=== PATIENT | female | born 1995 | race Caucasian/White ===

== ENCOUNTER 2018-04-06 16:41 | Inpatient (IN) ==
[2018-04-06] MEDS: Lactated Ringers-OB Dept 1,000 ML PRIMARY IV SCH (23:15)
[2018-04-06] MEDS ORDERED: Lactated Ringers 500 ML PRIMARY IV ONE (23:50)
[2018-04-07] MEDS ORDERED: Aluminum Chloride Soln 37.5 ml Solution TOPICAL ONE (09:22)
--- NOTE | 2018-04-07 09:28 | DI ---
LIMITED OBSTETRICAL ULTRASOUND FOR BIOPHYSICAL PROFILE, 04/07/2018 7:34 AM Clinical History: decelerations. Previous Exam: 12/02/2017. EDC Based on Early OB US: 07/13/2017. HENRY: 8.6 cm. Heart Rate: 142 beats per minute. Respiration Score: 0 Fine Motor Score: 2 Gross Motor Score: 2 Amnionic Fluid Score: 2 Reading: Biophysical Profile Score: 10/04.
[2018-04-07] MEDS: Lactated Ringers-OB Dept 1,000 ML PRIMARY IV SCH ×2 (10:08→23:26)
[2018-04-07] MEDS ORDERED: NALOXONE 0.4 MG/1 ML VIAL IVP PRN (18:12)
[2018-04-07] MEDS ORDERED: LIDOCAINE HCL 2 % 10 ML JELLY URO-JECT TOPICAL PRN (18:12)
[2018-04-07] MEDS ORDERED: Phenylephrine Inj 50 MCG in Sodium Chloride 0.9% vial 0.5 ML IVP PRN (18:12)
[2018-04-07] MEDS ORDERED: CefOXitin Inj 2 GM in Sodium Chloride 0.9% 100 ML IV PRN (18:12)
[2018-04-07] MEDS ORDERED: MISOPROSTOL 200 MCG TABLET RECTAL PRN (18:12)
[2018-04-07] MEDS ORDERED: OXYTOCIN 10 UNIT/1 ML IM PRN (18:12)
[2018-04-07] MEDS ORDERED: LIDOCAINE W/ SODIUM BICARB 0.5 ML SYR SUBD PRN (18:12)
[2018-04-07] MEDS ORDERED: CITRIC ACID/SODIUM CITRATE 30 ML CUP PO PRN (18:12)
[2018-04-07] MEDS ORDERED: FAMOTIDINE 20 MG/2 ML VIAL IVP PRN ×2 (18:12)
[2018-04-07] MEDS ORDERED: ONDANSETRON 4 MG/2 ML VIAL IVP PRN (18:12)
[2018-04-07] MEDS ORDERED: Naloxone Inj 0.01 MG in Sodium Chloride 0.9% vial 1 ML IVP PRN (18:12)
[2018-04-07] MEDS ORDERED: TERBUTALINE SULFATE 1 MG/1 ML SDV SUBCUT PRN (18:12)
[2018-04-07] MEDS ORDERED: ePHEDrine Inj 50 MG/ML AMP IVP PRN (18:12)
[2018-04-07] MEDS ORDERED: diphenhydrAMINE 50 MG/1 ML VIAL IVP PRN (18:12)
[2018-04-07] MEDS ORDERED: Nalbuphine Inj 20 MG/ML Ampule IVP PRN (18:12)
[2018-04-07] MEDS ORDERED: CALCIUM CARBONATE 500 MG (TUMS) CHEWABLE TABLET PO PRN (18:12)
[2018-04-07] MEDS ORDERED: Lidocaine 1% 10 MG/ML - 20 ML VIAL SUBCUT PRN (18:12)
[2018-04-07] MEDS ORDERED: METHYLERGONOVINE MALEATE 0.2 MG/1 ML VIAL IM PRN (18:12)
[2018-04-07] MEDS ORDERED: BUTORPHANOL TARTRATE 2 MG/1 ML VIAL IVP PRN (18:12)
[2018-04-07] MEDS ORDERED: Carboprost Inj 250 MCG/ML AMP IM PRN (18:12)
[2018-04-07] MEDS ORDERED: Metoclopramide Inj 10 MG/2 ML VIAL IV PRN (18:12)
[2018-04-07] MEDS ORDERED: Oxytocin 20 Units + LR 20 UNIT/1,000 ML BAG IV SCH (18:15)
--- NOTE | 2018-04-07 19:48 | OB.PROGRES ---
Date of Service: 04/07/18 Interval History: 22 yo at 38 2/7 weeks gestation by LMP and 1st trimester u/s presented several times over the weekend with contractions, but always in early labor. SHe has a history of precipitous delivery at home, PPH requiring transfusion. Given that she lives in [place], she stuck [facility] over the weekend in anticipation of progressing to active labor. Last night she came in again for a labor check, she had made slight cervical change and was also noted to have a couple of decelerations - unclear if they were lates as contractions weren't picking up. She was observed overnight and had rare decelrations. BPP was ordered this morning and was 8/10, 2 off for respirations, normal HENRY and NST was reactive. Decision made to continue observation. By about 6 pm this evening she appeared to be in more distress with contractions and decision made to admit. PMH - benign OBHx - presicipitous home delivery, PPH [employer] hx - no h/o STI, pap negative 08/27/17, was not on contraception FH - Mo - DM SH - Quit smoking prior to , 5 pack year history, denies etoh, illicit drug use. Cleans for a hotel Objective - Cervical Exam Cervical Exam: 3+/70/-2 Heart Rate Interpretation Category: Category I - Vital Signs Last Taken Vital Signs: Vital Signs - Last Taken Temperature 98.5 F 04/07/18 16:25 Pulse Rate 99 04/07/18 16:25 Respiratory Rate 16 04/07/18 16:25 Blood Pressure 125/76 04/07/18 16:25 Pulse Ox 98 04/07/18 18:54 Assessment and Plan - Patient Problems (1) Active labor at term Current Visit: Yes Status: Acute Support Text: -Continue close observation -May want an epidural given prolonged early labor -GBS negative -Dr. Esquivel to take over for the evening
[2018-04-07 22:28] LABS: Hematocrit [HCT] 32.6 % (37.0-47.0); Hemoglobin [HGB] 10.7 g/dL (12.0-16.0); MEAN CORPUSCULAR HEMOGLOBIN 27.4 PG (27-31); MEAN CORPUSCULAR HGB CONC 32.8 g/dL (33-37); MEAN CORPUSCULAR VOLUME 83.6 FL (81-99); MEAN PLATELET VOLUME 9.4 FL (7.4-12.2); RED BLOOD COUNT 3.9 10^6/uL (4.20-5.40)
[2018-04-07] MEDS ORDERED: Zolpidem Tab 5 MG TAB PO PRN (23:09)
[2018-04-08] MEDS: fentaNYL Inj 100 MCG/2 ML VIAL IV PRN ×4 (02:11→15:24)
[2018-04-08] MEDS: Lactated Ringers-OB Dept 1,000 ML PRIMARY IV SCH (12:28)
[2018-04-08] MEDS ORDERED: Oxytocin 20 Units + LR 20 UNIT/1,000 ML BAG IV SCH ×2 (12:30→17:00)
[2018-04-08] MEDS ORDERED: Fent/Bupiv 2mcg/0.0625% Epid 250 ML ONE (16:04)
--- NOTE | 2018-04-08 16:23 | CRNA.PROCE ---
Central Neuraxis Block Placemt - - Safety Measures: Time Out Taken, Site Verified - - Type of Block: Epidural Reason for Block: Analgesia Moniters Used During Block: SPO2, NIBP Positioning: Sitting Skin Prep Used: Betadine Skin Infiltration - Enter Amount Used in Comment Field: 1% Xylocaine with Bicarb (mL): Yes (wheal) Introducer User: None Spinal Needle Used: 18 Hustead 80 mm Local Anesthetic - Enter Amount Used in Comment Field: 5.0 % Xylocaine with Dextrose (ml): Yes (5ml Neg test dose) Number of Centimeters Catheter Threaded: 4 Bioclusive Dressing Applied: Yes - - Additional Details: L3-4 ANA MARIA to Saline and catheter threaded easily 4cm Test dose neg. Catheter secured and PCEA started Anesthesia Time - Other Weight: 77.564 kg Height: 5 ft 4 in Body Mass Index (BMI): 29.3
[2018-04-08] MEDS ORDERED: fentaNYL 2 MCG/BUPIVACAINE 0.0625%/NS 0.9% 250 ML BAG EPIDURAL SCH (16:30)
--- NOTE | 2018-04-08 16:45 | OB.DEL.SUM ---
Delivery Note Delivery Summary: 22 yo G3 now P2012 was admitted Saturday night in early labor with a history of precipitous labor. She seemed to be in more active labor last night however stalled out at 5 cm. She was started on pitocin this afternoon to augment labor. She ruptured with meconium stained fluid at about 1450. She was 5 cm prior to getting an epidural, she got a loading dose in her epidural then when she layed back she was 9 cm and started pushing shortly after. She initially pushed with the nurses. I arrived just in time to catch the baby. At 1620 she delivered via normal vaginal delivery a TAGA female in JOSEPH position over an intact perineum. No nuchal cord was noted. Her head, shoulders and body were delivered easily. Infant was placed on mom's abdomen. Cord clamping was delayed approx 45 seconds. Cord was doubly clamped and cut by the father. Her placenta delivered spontaneously, intact, with 3-vessel cord at 1626. Her perineum and vagina were inspected and only a skid petra at the perineum was noted. It was hemostatic and thus not repaired. EBL 200cc. Mom and baby tolerated delivery well. Apgars 7,8. - Patient Problems (1) Vaginal delivery Current Visit: Yes Status: Acute Code(s): O80 - Encounter for full-term uncomplicated delivery
[2018-04-08] MEDS ORDERED: diphenhydrAMINE 50 MG/1 ML VIAL IVP PRN (16:57)
[2018-04-08] MEDS ORDERED: diphenhydrAMINE 25 MG CAPSULE PO PRN (16:57)
[2018-04-08] MEDS ORDERED: LIDOCAINE HCL 2 % 10 ML JELLY URO-JECT TOPICAL PRN (16:57)
[2018-04-08] MEDS ORDERED: HYDROcodone-APAP 5 MG -325 MG TABLET PO PRN (16:57)
[2018-04-08] MEDS ORDERED: CALCIUM CARBONATE 500 MG (TUMS) CHEWABLE TABLET PO PRN (16:57)
[2018-04-08] MEDS ORDERED: BENZOCAINE/MENTHOL SPRAY 56 GM BOTTLE TOPICAL PRN (16:57)
[2018-04-08] MEDS ORDERED: GLYCERIN/WITCH HAZEL 1 BOX TOPICAL PRN (16:57)
[2018-04-08] MEDS ORDERED: ACETAMINOPHEN 325 MG TABLET PO PRN (16:57)
[2018-04-08] MEDS ORDERED: Nalbuphine Inj 20 MG/ML Ampule IVP PRN (16:57)
[2018-04-08] MEDS ORDERED: ONDANSETRON 4 MG/2 ML VIAL IVP PRN (16:57)
[2018-04-08] MEDS ORDERED: LANOLIN HPA 40 GM TUBE TOPICAL PRN (16:57)
[2018-04-08] MEDS ORDERED: Ondansetron ODT Tab 4 MG TAB PO PRN (16:57)
--- NOTE | 2018-04-08 20:54 | CRNA.PROGR ---
Anesthesia Time - Procedure/Recovery Time Start Date: 04/08/18 End Date: 04/08/18 Anesthesia : Time In: 15:35 Anesthesia : Time Out: 16:00 Anesthesia : Total Time: 25 - Total Anesthesia Time Total Anesthesia Time (minutes): 25 - Other Weight: 77.564 kg Height: 5 ft 4 in Body Mass Index (BMI): 29.3 Physical Status: P2 Anesthesia Type: Epidural (For JOE) Obstetrics: Planned vaginal delivery w/ neuraxial labor anesthesia/analog
[2018-04-08] MEDS: IBUPROFEN 800 MG TABLET PO PRN (21:40)
[2018-04-09 04:48] LABS: Hematocrit [HCT] 30.4 % (37.0-47.0); MEAN CORPUSCULAR HEMOGLOBIN 27.5 PG (27-31); MEAN CORPUSCULAR HGB CONC 32.9 g/dL (33-37); MEAN CORPUSCULAR VOLUME 83.5 FL (81-99); RED BLOOD COUNT 3.64 10^6/uL (4.20-5.40)
[2018-04-09] MEDS: IBUPROFEN 800 MG TABLET PO PRN ×2 (09:07→22:11)
[2018-04-09] MEDS: Prenatal Multivitamin Tab 1 TAB TAB PO SCH (09:07)
[2018-04-09] MEDS: DOCUSATE 100 MG CAPSULE PO SCH ×2 (09:07→22:08)
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
[2018-04-10] MEDS: DOCUSATE 100 MG CAPSULE PO SCH ×2 (05:56→08:03)
[2018-04-10] MEDS: Lactated Ringers-OB Dept 1,000 ML PRIMARY IV SCH ×4 (05:57→06:23)
[2018-04-10] MEDS: Prenatal Multivitamin Tab 1 TAB TAB PO SCH (08:03)
[2018-04-10] MEDS: IBUPROFEN 800 MG TABLET PO PRN (08:03)
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
== END 2018-04-10 10:00 | disposition home or self-care (01) | DRG 807 ==
LOC: OBIP 16:41 → OBOP 16:41 → OBIP 04-09 23:03 → UNDODISIN 04-10 10:00
PROVIDERS: ADMIT Obstetrics & Gynecology; ATTEND Student in an Organized Health Care Education/Training Program